=== PATIENT | female | born 1995 | race Caucasian/White ===

== ENCOUNTER 2016-08-21 11:56 | Emergency (ER) | payer OTHER ==
[2016-08-21 13:20] VITALS: BP 116/74
--- NOTE | 2016-08-21 13:28 | UC ---
Lower Extremity/Ankle HPI - HPI Summary HPI Summary: LEFT FOOT PAIN X 8 HRS INJURY TO LEFT FOOT THIS MORNING , DROPPED A HEAVY OBJECT ON TOP OF HER LEFT FOOT, PAIN AND SWELLING OF THE LEFT TOES - History of Current Complaint Chief Complaint: UCLowerExtremity Stated Complaint: LEFT FOOT INJURY Time Seen by Provider: 08/21/16 13:00 Hx Obtained From: Patient Hx Last Menstrual Period: 08/20/16 ?: No Onset/Duration: Sudden Onset, Lasting Hours - 8, Still Present Severity Initially: Moderate Severity Currently: Moderate Aggravating Factor(s): Standing, Ambulation Alleviating Factor(s): Nothing Able to Bear Weight: Yes Feet (Multiple View): 1 - LEFT FOOT PAIN ,. TENDERNESS - Risk Factors Gout Risk Factors: Negative DVT Risk Factors: Negative - Allergies/Home Medications Allergies/Adverse Reactions: Allergies Allergy/AdvReac Type Severity Reaction Status Date / Time No Known Allergies Allergy Verified 08/21/16 13:20 PMH/Surg Hx/FS Hx/Imm Hx Previously Healthy: Yes Endocrine History Of: Denies: Diabetes Cardiovascular History Of: Denies: Cardiac Disorders Respiratory History Of: Denies: COPD GI/ History Of: Denies: Gastroesophageal Reflux Neurological History Of: Denies: CVA Psychological History Of: Denies: Anxiety Cancer History Of: Denies: Lung Cancer - Surgical History Surgical History: None - Family History Known Family History: Positive: None Negative: Cardiac Disease, Hypertension, Respiratory Disease - Social History Alcohol Use: Occasionally Substance Use Type: None Smoking Status (MU): Never Smoked Tobacco - Immunization History Most Recent Influenza Vaccination: Not the Season Review of Systems Constitutional: Negative Skin: Negative Eyes: Negative ENT: Negative Respiratory: Negative Musculoskeletal: Other: - LEFT FOOT PAIN / INJURY All Other Systems Reviewed And Are Negative: Yes Physical Exam Triage Information Reviewed: Yes Appearance: Well-Appearing, No Pain Distress, Well-Nourished Vital Signs: Initial Vital Signs Temp 97.7 F 08/21/16 13:07 Pulse 93 08/21/16 13:07 Resp 16 08/21/16 13:07 BP 116/74 08/21/16 13:07 Pulse Ox 100 08/21/16 13:07 Vital Signs Reviewed: Yes Eyes: Positive: Conjunctiva Clear ENT: Positive: Normal ENT inspection, Hearing grossly normal, Pharynx normal Neck: Positive: Supple, Nontender, No Lymphadenopathy Respiratory: Positive: Chest non-tender, Lungs clear, Normal breath sounds Cardiovascular: Positive: RRR, No Murmur, Pulses Normal Musculoskeletal: Positive: Other: - LEFT FOOT : MILD SWELLING, NO ERYTHEM, NO ECCHYMOSIS, = TENDERNESS 2,3,4 TH TOES Lower Extremity Course/Dx - Differential Dx/Diagnosis Provider Diagnoses: CONTUSION LEFT FOOT Discharge - Discharge Plan Condition: Stable Disposition: HOME Patient Education Materials: Foot Contusion (ED) Referrals: Non Staff,Doctor [Primary Care Provider] - If Needed
--- NOTE | 2016-08-21 13:32 | RAD ---
Indication: Crush injury to the LEFT first, second, and third toes. Pain. Comparison: None. Technique: AP, lateral, and oblique views LEFT foot. Report: Negative for fracture or malalignment. Small accessory ossicle at the lateral base of the first distal phalanx. Unremarkable soft tissue contours. IMPRESSION: Negative for fracture.
== END 2016-08-21 13:38 | disposition home or self-care (01) ==
LOC: UCCORT 11:56
DX: S90.32XA Contusion of left foot, initial encounter (principal); W20.8XXA Other cause of strike by thrown, projected or falling object, initial encounter; Y93.9 Activity, unspecified; Y92.9 Unspecified place or not applicable
CPT/HCPCS: 99211; G0463

== ENCOUNTER 2017-08-03 20:38 | Emergency (ER) | payer OTHER ==
[2017-08-03 20:58] VITALS: BP 139/100
--- NOTE | 2017-08-03 21:04 | UC ---
Skin Complaint HPI - HPI Summary HPI Summary: Squeezed a pimple on the chin. Now with worsening swelling with pain. Spreading down chin onto the neck. - History of Current Complaint Chief Complaint: UCSkin Time Seen by Provider: 08/03/17 20:58 Stated Complaint: SKIN COMPLAINT Hx Obtained From: Patient Hx Last Menstrual Period: 07/20/17 ?: No Onset/Duration: Sudden Onset, Lasting Days - 1, Worse Since - this evening. Skin Exposure Onset/Duration: Days Ago - 1 Onset Severity: Mild Current Severity: Moderate Pain Intensity: 5 Location: Discrete - Chin Character: Swelling, Pain, Redness Aggravating Factor(s): Touch Alleviating Factor(s): Nothing Associated Signs & Symptoms: Positive: Negative - Allergy/Home Medications Allergies/Adverse Reactions: Allergies Allergy/AdvReac Type Severity Reaction Status Date / Time No Known Allergies Allergy Verified 08/03/17 20:51 Home Medications: Home Medications Ibuprofen TAB* [Advil TAB*] 200 mg PO Q6H PRN 08/03/17 [History Confirmed ] Norgestimate-Eth Estradiol(NF) [Ortho Tri-Cyclen (NF)] 1 tab PO DAILY 08/03/17 [ History Confirmed 08/03/17] Omeprazole CAP* [Prilosec CAP* 20 MG] 20 mg PO DAILY 08/03/17 [History Confirmed 08/03/17] Review of Systems Skin: Rash Is Patient Immunocompromised?: No All Other Systems Reviewed And Are Negative: Yes PMH/Surg Hx/FS Hx/Imm Hx Previously Healthy: Yes - Surgical History Surgical History: None - Family History Known Family History: Positive: Hypertension Negative: Cardiac Disease, Respiratory Disease - Social History Occupation: Student Lives: Dormitory/Roommates Alcohol Use: Occasionally Substance Use Type: None Smoking Status (MU): Never Smoked Tobacco - Immunization History Most Recent Influenza Vaccination: not current Physical Exam Triage Information Reviewed: Yes Appearance: Well-Appearing, Well-Nourished, Pain Distress - mild Vital Signs: Initial Vital Signs Temp 98.3 F 08/03/17 20:53 Pulse 88 08/03/17 20:53 Resp 16 08/03/17 20:53 BP 139/100 08/03/17 20:53 Pulse Ox 100 08/03/17 20:53 Vital Signs Reviewed: Yes Eyes: Positive: Conjunctiva Clear ENT: Positive: Pharynx normal, TMs normal Neck: Positive: Tenderness @ - submental area with cellulitis Respiratory Exam: Normal Cardiovascular Exam: Normal Musculoskeletal Exam: Normal Neurological Exam: Normal Psychological Exam: Normal Skin: Positive: Other - erythema with pimple on the chin with redness spreading down onto the neck. Course/Dx - Differential Diagnoses - Skin Complaint Differential Diagnoses: Cellulitis, Eczema, Lymphadenitis, Lymphangitis - Diagnoses Provider Diagnoses: Cellulitis chin Discharge - Sign-Out/Discharge Documenting (check all that apply): Discharge - Discharge Plan Condition: Stable Disposition: HOME Prescriptions: Cephalexin CAP* [Keflex 500 CAP*] 500 mg PO QID #28 cap Patient Education Materials: Cellulitis (ED), Cephalexin (By mouth) Referrals: Non Staff,Doctor [Primary Care Provider] - - Billing Disposition and Condition Condition: STABLE Disposition: HOME
[2017-08-03] MEDS ORDERED: Cephalexin CAP* 500 MG PO ONE (21:05)
== END 2017-08-03 21:23 | disposition home or self-care (01) ==
LOC: UCCORT 20:38
DX: L03.211 Cellulitis of face (principal)
CPT/HCPCS: 99211; A9270-GY; G0463